=== PATIENT | male | born 1965 | race Caucasian/White ===

== ENCOUNTER 2019-07-07 11:53 | Emergency (ER) | payer SELFPAY ==
[2019-07-07 12:39] VITALS: BP 193/91; PULSE 59; RESP 16; TEMP 37.9; O2SAT 93; BMI 40.4
--- NOTE | 2019-07-07 13:28 | XRR_ITS ---
PROCEDURE INFORMATION: Exam: XR Chest, 1 View Exam date and time: 07/07/2019 1:39 PM Age: 54 years old Clinical indication: Cough and fever; Additional info: Cough, fever TECHNIQUE: Imaging protocol: XR of the chest Views: 1 view. COMPARISON: No relevant prior studies available. FINDINGS: Lungs: Unremarkable. No consolidation. Pleural space: Unremarkable. No pleural effusion. No pneumothorax. Heart/Mediastinum: Unremarkable. No cardiomegaly. Bones/joints: Unremarkable. XR/XR chest 1V portable [id number] IMPRESSION: No acute findings.
[2019-07-07 14:06] LABS: Hematocrit 44.6 % (42.0-52.0); Hemoglobin 14.5 g/dL (11.7-16.6); Mean Corpuscular HGB Conc 32.5 g/dL (30.0-36.0); Mean Corpuscular Hemoglobin 27.6 pg (28.0-34.0); Mean Platelet Volume 11.4 fL (7.4-10.4); Platelet Count 188 10^3/cmm (130-400); Red Blood Count 5.25 10^6/uL (4.1-5.3); Red Cell Distribution Width 13.4 % (12.1-15.1); White Blood Count 8.2 10^3/uL (4.0-10.0)
--- NOTE | 2019-07-07 14:08 | ED_ITS ---
HPI - Fever General: Chief Complaint: Fever Stated Complaint: FEVER COUGH ACHES Time Seen by Provider: 07/07/19 14:05 Source: patient and family Mode of arrival: ambulatory Limitations: no limitations History of Present Illness: HPI Narrative: Patient is a very nice 54-year-old male who presents to ED today believing he has the flu. Patient states he has had positive flu exposure from his grandson recently. He is complaining of body aches, fevers of up to 102, chills, and congestion. Symptoms initially began approximately 4 days ago. He is not having any abdominal pain, nausea, vomiting, diarrhea. He is still able to hold down food and liquids well. MD elicited complaint: fever and other (body aches, flu ) Onset (ago): day(s) Measured temperature: 102 F Context: sick contacts (grandson with flu) Exacerbating factors: at night Relieving factors: ibuprofen Associated symptoms: Reports chills, nasal congestion and sinus pain; Deny abdominal pain, back/flank pain, chest pain, diarrhea, dysuria, headache(s), nausea or vomiting Review of Systems Const: Reports: fever, chills and body aches; Denies: change in appetite, change in weight or fatigue Eyes: Denies: change in vision, blurry vision, photophobia, eye discomfort or eye discharge ENMT: Reports: nasal congestion and facial/sinus pain; Denies: throat pain, enlarged tonsils, painful swallowing, swelling of lips/tongue, oral sores/lesions, ear pain, ear discharge, nasal discharge or post nasal drip Card: Denies: chest pain, palpitations, irregular heart rhythm, edema, swelling of feet/ankles, lightheadedness, syncope or pre-syncope Resp: Denies: shortness of breath, productive cough, non-productive cough or chest congestion GI: Denies: abdominal pain, nausea, vomiting or diarrhea : Denies: flank pain, difficulty urinating, painful urination, urinary frequency, urinary urgency or urinary hesitancy Musc: Denies: neck pain or back pain Skin/Breast: Denies: rash Neuro: Denies: headache, numbness in extremities, weakness in extremities or changes in sensation All/Imm: Denies: facial swelling or seasonal allergies PFSH ED PFSH: Social History Smoking and tobacco status: never smoked Physical Exam Const: COMMON NORMALS: no apparent distress, oriented x3, no limitations and alert NUTRITIONAL APPEARANCE: obese HENMT: COMMON NORMALS: normocephalic, head/scalp atraumatic, EAC's normal, TM's normal bilaterally and external nose normal HEAD & SCALP: normocephalic and atraumatic FACE & SINUS: normal facial exam NOSE: external nose normal EXTERNAL AUDITORY CANAL: EAC's normal TYMPANIC MEMBRANE: TM's normal bilaterally MOUTH: oral and palatal mucosa normal THROAT: posterior oropharynx normal, tonsils normal and uvula midline Eye: COMMON NORMALS: PERRL, EOMs intact bilaterally, conjunctivae normal and no scleral icterus CONJUNCTIVA: Yes conjunctivae normal PUPIL: Yes PERRL Neck/C-Spine: COMMON NORMALS: full ROM, no lymphadenopathy, supple and no meningeal signs Chest: COMMONS NORMALS: inspection of chest normal Resp: COMMON NORMALS: normal respiratory effort and clear to auscultation bilaterally AUSCULTATION: clear to auscultation bilaterally Cardio: COMMON NORMALS: regular rate and regular rhythm RATE: regular rate RHYTHM: regular rhythm GI: COMMON NORMALS: normal to inspection, nondistended, normoactive bowel sounds, soft to palpation, non-tender, no hepatosplenomegaly and no masses PALPATION: Yes soft and Yes no hepatosplenomegaly : COMMON NORMALS: Yes no CVA tenderness BLADDER/KIDNEY EXAM: Yes no CVA tenderness Back/Pelvis: COMMON NORMALS: no CVA tenderness and thoracic and lumbar spine normal to inspection Extremity: COMMON NORMALS: normal to inspection Neuro: COMMON NORMALS: oriented x3 SENSORIUM/ORIENTATION: Yes alert MENINGEAL SIGNS: Yes no meningeal signs Skin: COMMON NORMALS: no rashes or lesions noted GENERAL SKIN EXAM: no rashes or lesions noted Course Vital Signs: Vital signs: Vital Signs Temperature 100.2 F H 07/07/19 12:39 Pulse Rate 59 L 07/07/19 12:39 Respiratory Rate 16 07/07/19 12:39 Blood Pressure 193/91 07/07/19 12:39 Pulse Oximetry 93 07/07/19 12:39 MDM - Fever Lab Data: Labs: Lab Results 07/07/19 07/07/19 07/07/19 Range/Units 13:45 13:49 14:21 WBC 8.2 (4.0-10.0) 10^3/ uL RBC 5.25 (4.1-5.3) 10^6/u L Hgb 14.5 (11.7-16.6) g/dL Hct 44.6 (42.0-52.0) % MCV 85.0 (80-94) fL MCH 27.6 L (28.0-34.0) pg MCHC 32.5 (30.0-36.0) g/dL RDW 13.4 (12.1-15.1) % Plt Count 188 (130-400) 10^3/c mm MPV 11.4 H (7.4-10.4) fL Total Counted 100 (0-100) Segmented Neutroph ils 73 % Lymphocytes (Manua l) 20 % Monocytes (Manual) 7.0 % Absolute Monocytes 0.6 (0.1-0.6) 10^3/c mm Platelet Estimate Normal (Normal) Sodium 137 (136-145) mmol/L Potassium 3.9 (3.5-5.1) mmol/L Chloride 96 L (98-107) mmol/L Carbon Dioxide 27 (22-29) mmol/L Anion Gap 17.9 (5-19) BUN 11 (6-20) mg/dL Creatinine 1.3 H (0.7-1.2) mg/dL GFR Calculation 57.1 L (90-130) mL/min Glucose 122 H (65-115) mg/dL Calcium 9.3 (8.5-10.5) mg/dL Total Bilirubin 0.5 (0.15-1.2) mg/dL AST 23 (0-40) U/L ALT 36 (0-41) U/L Alkaline Phosphata se 61 (40-130) IU/L Total Protein 7.8 (6.6-8.7) g/dL Albumin 4.5 (3.5-5.2) g/dL Globulin 3.3 (1.3-4.6) g/dL Influenza Type A A g Negative (Negative) POC Influenza B Ag Positive H (Negative) Imaging Data^: CXR: Radiologist's impression: [address] [address] XRay Report Signed Patient: [place] Unit #: [id number] : 1965 Age/Sex: 54 / M ADM Date: 07/07/19 Loc: ER Room/Bed: Attending Dr: Ordering Provider/Ordering MD: Leslie Snell MD Date of Service: 07/07/19 Procedure(s): XR chest 1V portable [id number] Accession Number(s): [id number] Report Number: [id number] PROCEDURE INFORMATION: Exam: XR Chest, 1 View Exam date and time: 07/07/2019 1:39 PM Age: 54 years old Clinical indication: Cough and fever; Additional info: Cough, fever TECHNIQUE: Imaging protocol: XR of the chest Views: 1 view. COMPARISON: No relevant prior studies available. FINDINGS: Lungs: Unremarkable. No consolidation. Pleural space: Unremarkable. No pleural effusion. No pneumothorax. Heart/Mediastinum: Unremarkable. No cardiomegaly. Bones/joints: Unremarkable. XR/XR chest 1V portable [id number] IMPRESSION: No acute findings. Dictated By: Bryanna Moss MD Signed By: Bryanna Moss MD Signed Date/Time: 07/07/191433 DD/ 143 Discharge Plan Discharge Patient Disposition: Home, Self-Care Clinical Impression: Influenza Condition: Stable Prescriptions: No Action Multiple Vitamins Tablet 1 tab PO DAILY RF: 0 metoprolol tartrate 100 mg tablet 100 mg PO BID RF: 0 aspirin 81 mg Tablet,Delayed Release (Dr/Ec) 81 mg PO DAILY RF: 0 levothyroxine 75 mcg tablet 75 mcg PO BID RF: 0 ibuprofen 200 mg Tablet 200 mg PO Q6H PRN (Reason: Pain) RF: 0 lisinopril-hydrochlorothiazide 20-25 mg tablet 1 tab PO DAILY RF: 0 zinc 50 mg Tablet 50 mg PO DAILY RF: 0 Coricidin HBP Cold and Flu 2-325 mg Tablet 1 tab PO Q6H PRN (Reason: UNKNOWN) RF: 0 elderberry fruit and flower 460-115 mg Capsule 1 cap PO DAILY RF: 0 Discharge Orders: Discharge Order (Routine); Ordered 07/07/19 Ordered By: Scarlet Lincoln Discharge Diet: Usual diet Discharge Activity: Increase activity as tolerated Patient Instructions: Influenza (ED) Coding Level of Care Code ED Brand Recorder for Chg Fwd Exam Comprehensive
[2019-07-07 14:30] LABS: Total Cells Counted 100 (0-100)
[2019-07-07 14:31] LABS: Absolute Segmented Neutrophil 5.9 10/cmm (1.6-7.1); Lymphocytes 20 %; Monocytes Absolute 0.6 10^3/cmm (0.1-0.6); Platelet Estimate Normal (Normal); Segmented Neutrophils 73 %
[2019-07-07 14:34] LABS: Alanine Aminotransferase 36 U/L (0-41); Albumin Level 4.5 g/dL (3.5-5.2); Alkaline Phosphatase 61 IU/L (40-130); Anion Gap 17.9 (5-19); Aspartate Amino Transferase 23 U/L (0-40); Blood Urea Nitrogen 11 mg/dL (6-20); Calcium 9.3 mg/dL (8.5-10.5); Carbon Dioxide 27 mmol/L (22-29); Chloride 96 mmol/L (98-107); Globulin 3.3 g/dL (1.3-4.6); Glomerular Filtration Rate 57.1 mL/min (90-130); Glucose 122 mg/dL (65-115); Potassium 3.9 mmol/L (3.5-5.1); Sodium 137 mmol/L (136-145); Total Bilirubin 0.5 mg/dL (0.15-1.2); Total Protein 7.8 g/dL (6.6-8.7)
[2019-07-07 14:54] LABS: Influenza A by IFA Negative (Negative)
[2019-07-07 14:55] LABS: Influenza B by IFA Positive (Negative)
[2019-07-07 15:11] VITALS: PULSE 55; RESP 16; O2SAT 96
== END 2019-07-07 15:12 | disposition home or self-care (01) ==
PROVIDERS: Emergency Medicine; Emergency Provider Physician Assistant
DX: J11.1 Influenza due to unidentified influenza virus with other respiratory manifestations (principal); E66.9 Obesity, unspecified; Z68.41 Body mass index [BMI] 40.0-44.9, adult
CPT/HCPCS: 36415; 71045; 80053; 85007; 85027; 87804; 99281; 99283

== ENCOUNTER 2022-07-04 00:33 | Emergency (ER) | payer MEDICAID, SELFPAY ==
--- NOTE | 2022-07-04 00:39 | XRR_ITS ---
PROCEDURE INFORMATION: Exam: XR Chest Exam date and time: 07/04/2022 1:40 AM Age: 57 years old Clinical indication: Patient HX: C/O palpitations; Additional info: Arrhythmia TECHNIQUE: Imaging protocol: Radiologic exam of the chest. Views: 1 view. COMPARISON: CR XR chest 1V portable [id number] 07/07/2019 1:37 PM FINDINGS: Lungs: Minimal bibasilar atelectasis.. No consolidation. Pleural spaces: Unremarkable. No pleural effusion. No pneumothorax. Heart/Mediastinum: Unremarkable. No cardiomegaly. Bones/joints: Unremarkable. XR/XR chest 1V portable [id number] IMPRESSION: No acute findings.
[2022-07-04 00:40] VITALS: BMI 40.1
--- NOTE | 2022-07-04 00:42 | ED_ITS ---
HPI - General Adult General: Chief complaint: Arrhythmia/Palpitations Stated complaint: irregular hr Time Seen by Provider: 07/04/22 00:39 History of Present Illness: 57-year-old male patient comes in today with irregular heart rate. Patient felt lightheaded at home. Patient has had a history of atrial fibs. Patient also has poorly controlled hypertension. Patient takes 100 mg of metoprolol twice a day. Patient also takes lisinopril 20 with 25 mg of hydrochlorothiazide daily. Patient denies any chest pain. Patient takes levothyroxine 75 mcg twice a day for some hypothyroidism. Patient takes that at home blood pressure runs 160-180 systolic. Patient reports taking medications routinely. Associated symptoms: Deny chest pain, dyspnea, nausea, rash or vomiting Review of Systems Const: Denies: fever(s) Eyes: Denies: change in vision ENMT: Denies: throat pain Card: Reports: irregular heart rhythm; Denies: chest pain Resp: Denies: dyspnea GI: Denies: nausea or vomiting : Denies: difficulty urinating Skin/Breast: Denies: rash PFSH ED PFSH: Social History Smoking and tobacco status: never smoked Physical Exam Const: COMMON NORMALS: alert HENMT: COMMON NORMALS: normocephalic HEAD & SCALP: normocephalic NOSE: Normal nares present MOUTH: Normal oral and palatal mucosa present Neck/C-Spine: COMMON NORMALS: full ROM Resp: COMMON NORMALS: normal respiratory effort and clear to auscultation bilaterally AUSCULTATION: clear to auscultation bilaterally Cardio: COMMON NORMALS: regular rate, S1 normal heart sound present and S2 normal heart sound present RATE: regular rate RHYTHM: abnormal rhythm HEART SOUNDS: S1 normal heart sound present and S2 normal heart sound present GI: AUSCULTATION: Yes normoactive bowel sounds PALPATION: No Tenderness to palpation present (GI) Extremity: COMMON NORMALS: normal to inspection and no pedal edema Neuro: SENSORIUM/ORIENTATION: Yes alert Skin: COMMON NORMALS: turgor normal GENERAL SKIN EXAM: turgor normal Course Vital Signs: Vital signs: Vital Signs Temperature 98.8 F 07/04/22 00:47 Pulse Rate 67 07/04/22 01:55 Respiratory Rate 16 07/04/22 01:55 Blood Pressure 164/112 07/04/22 01:55 Pulse Oximetry 94 07/04/22 01:55 Oxygen Delivery Me thod 07/04/22 00:47 MDM - General Adult Medical Decision Making 57-year-old male patient comes in today with some irregular heart rate and lightheadedness. Patient has a history of atrial fibs and uncontrolled hypertension along with hypothyroidism. Patient is obese. On exam heart rate is irregular in the lower 100s. No edema is noted in the extremity. Abdomen soft nontender. Lungs are decreased in the bases. Blood pressure is elevated at 221/144. EKG shows atrial fibrillation with RVR and possible myocardial infarct. Differential diagnosis includes ACS, uncontrolled hypertension, atrial fib with RVR. Patient was treated with 25 mg of hydralazine for elevated blood pressure. Patient was given 25 mg of diltiazem for A-fib with RVR. Patient had improvement of atrial fibrillation with good rate control into the 60s. Chest x-ray noted some possible patchy infiltrate in the right middle lobe, patient had complained of some increased cough and congestion. Troponin was in the normal range, BNP was in the normal range. I believe the patient has a lower respiratory infection that may be aggravating his atrial fibrillation. We will start patient on doxycycline 100 mg 2 times a day. Patient has medications at home for asthma. Which she will continue. Patient then will also continue his routine cardiac medications. Patient felt comfortable to go home blood pressure was brought under control to 160 systolic and pulse rate was brought under control into the 60s. Lab Data 07/04/22 00:58 07/04/22 00:58 Laboratory Results WBC 9.6 10^3/uL (4.0-10.0) 07/04/22 00:58 RBC 5.38 10^6/uL (4.1-5.3) H 07/04/22 00:58 Hgb 15.2 g/dL (11.7-16.6) 07/04/22 00:58 Hct 45.8 % (42.0-52.0) 07/04/22 00:58 MCV 85.1 fl (80-94) 07/04/22 00:58 MCH 28.3 pg (28.0-34.0) 07/04/22 00:58 MCHC 33.2 g/dL (30.0-36.0) 07/04/22 00:58 RDW 13.0 % (12.1-15.1) 07/04/22 00:58 Plt Count 228 10^3/cmm (130-400) 07/04/22 00:58 MPV 10.7 fL (7.4-10.4) H 07/04/22 00:58 Neut % (Auto) 38.2 % 07/04/22 00:58 Lymph % (Auto) 41.5 % 07/04/22 00:58 [place] % (Auto) 10.4 % 07/04/22 00:58 Eos % (Auto) 8.4 % 07/04/22 00:58 Baso % (Auto) 1.1 % 07/04/22 00:58 Neut # (Auto) 3.68 10^3/uL (1.8-7.7) 07/04/22 00:58 Lymph # (Auto) 4.0 10^3/uL (0.8-4.8) 07/04/22 00:58 [place] # (Auto) 1.0 10^3/uL (0.2-0.9) H 07/04/22 00:58 Eos # (Auto) 0.8 10^3/uL (0.0-0.8) 07/04/22 00:58 Baso # (Auto) 0.1 10^3/uL (0.0-0.1) 07/04/22 00:58 Nucleated RBC % (auto) 0 % 07/04/22 00:58 Nucleated RBCs # 0.0 /100WBC 07/04/22 00:58 Sodium 137 mmol/L (136-145) 07/04/22 00:58 Potassium 3.5 mmol/L (3.5-5.1) 07/04/22 00:58 Chloride 97 mmol/L (98-107) L 07/04/22 00:58 Carbon Dioxide 27 mmol/L (22-29) 07/04/22 00:58 Anion Gap 16.5 (5-19) 07/04/22 00:58 BUN 15 mg/dL (6-20) 07/04/22 00:58 Creatinine 1.0 mg/dL (0.7-1.2) 07/04/22 00:58 GFR Calculation 76.5 mL/min (90-130) L 07/04/22 00:58 Glucose 114 mg/dL (65-115) 07/04/22 00:58 Calculated Osmolality 286 mOsm/kg (285-295) 07/04/22 00:58 Calcium 9.5 mg/dL (8.5-10.5) 07/04/22 00:58 Total Bilirubin 0.4 mg/dL (0.15-1.2) 07/04/22 00:58 AST 17 U/L (0-40) 07/04/22 00:58 ALT 21 U/L (0-41) 07/04/22 00:58 Alkaline Phosphatase 63 U/L (40-130) 07/04/22 00:58 Troponin T Baseline 13 ng/L (0-15) 07/04/22 00:58 NT-Pro-B Natriuret Pep 87 pg/mL (0-125) 07/04/22 00:58 Total Protein 7.2 g/dL (6.6-8.7) 07/04/22 00:58 Albumin 4.2 g/dL (3.5-5.2) 07/04/22 00:58 Globulin 3.0 g/dL (1.3-4.6) 07/04/22 00:58 TSH 9.55 uIU/mL (0.27-4.20) H 07/04/22 00:58 Discharge Plan Discharge Patient Disposition: Home Clinical Impression: Uncontrolled hypertension, Acute lower respiratory infection Atrial fibrillation Qualifiers: Atrial fibrillation type: unspecified Qualified Code(s): I48.91 - Unspecified atrial fibrillation Condition: Stable Prescriptions: New doxycycline monohydrate 100 mg capsule 100 mg PO BID 7 Days Qty: 14 0RF No Action Multiple Vitamins Tablet 1 tab PO DAILY metoprolol tartrate 100 mg tablet 100 mg PO BID aspirin 81 mg Tablet,Delayed Release (Dr/Ec) 81 mg PO DAILY levothyroxine 75 mcg tablet 75 mcg PO BID ibuprofen 200 mg Tablet 200 mg PO Q6H PRN (Reason: Pain) lisinopril-hydrochlorothiazide 20-25 mg tablet 1 tab PO DAILY zinc 50 mg Tablet 50 mg PO DAILY Coricidin HBP Cold and Flu 2-325 mg Tablet 1 tab PO Q6H PRN (Reason: UNKNOWN) elderberry fruit and flower 460-115 mg Capsule 1 cap PO DAILY Discharge Orders: Discharge ED (Routine); Ordered 07/04/22 Ordered By: Gurmeet Infante Discharge Diet: Usual diet Discharge Activity: Increase activity as tolerated Patient Instructions: Pneumonia (ED) Activity Restrictions/Additional Instructions: Take antibiotic as directed. Take medications routinely as directed. Use clonidine as needed for blood pressure greater then 180 systolic. Use albuterol inhaler as needed for cough and congestion. Drink plenty of fluids. Follow-up with primary care in 2 to 3 days for recheck. Return to ED for worsening symptoms or new concerns. Coding Level of Care Code ED Housing And Residence Life Director for 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
--- NOTE | 2022-07-04 00:42 | ECG_ITS ---
[facility] Test Date: 2022-07-04 Pat Name: [place] Department: Room: Gender: Male Quality Ass[employer] Qa Lab Technician: : 1965 Requested By: Gurmeet Sharp Order Number: [id number] Charity MD: Sheela Reddy M.D. Measurements Intervals [place] Rate: 106 P: 0 MD: 0 QRS: -15 QRSD: 104 T: 107 QT: 336 QTc: 447 Interpretive Statements ATRIAL FIBRILLATION WITH RAPID VENTRICULAR RESPONSE SEPTAL MYOCARDIAL INFARCTION , PROBABLY RECENT [40+ ms Q WAVE IN V1/V2] ACUTE MD No previous ECG available for comparison Electronically Signed On 07-04-2022 22:19:14 DIVISION SERGEANT by Sheela Reddy M.D. [id number]
[2022-07-04 00:47] VITALS: BP 221/144; PULSE 100; RESP 18; TEMP 37.1; O2SAT 96
[2022-07-04 01:03] LABS: Basophils # 0.1 10^3/uL (0.0-0.1); Basophils % 1.1 %; Eosinophils # 0.8 10^3/uL (0.0-0.8); Eosinophils % 8.4 %; Hematocrit 45.8 % (42.0-52.0); Hemoglobin 15.2 g/dL (11.7-16.6); Lymphocytes % 41.5 %; Mean Corpuscular HGB Conc 33.2 g/dL (30.0-36.0); Mean Corpuscular Hemoglobin 28.3 pg (28.0-34.0); Mean Corpuscular Volume 85.1 fl (80-94); Mean Platelet Volume 10.7 fL (7.4-10.4); Monocytes % 10.4 %; Neutrophils # 3.68 10^3/uL (1.8-7.7); Neutrophils % 38.2 %; Nucleated Red Blood Cells % 0 %; Platelet Count 228 10^3/cmm (130-400); Red Blood Count 5.38 10^6/uL (4.1-5.3); White Blood Count 9.6 10^3/uL (4.0-10.0)
[2022-07-04 01:07] VITALS: BP 181/125; PULSE 98; RESP 20; O2SAT 91
[2022-07-04] MEDS: hyDRALAzine 25 mg Tablet PO (01:23)
[2022-07-04] MEDS: dilTIAZem 5 mg/mL SDV 5 mL 25 MG IVP (01:24)
[2022-07-04 01:29] LABS: Troponin(5th) Baseline 13 ng/L (0-15)
[2022-07-04 01:39] VITALS: BP 177/95; PULSE 64; RESP 18; O2SAT 95
[2022-07-04 01:39] LABS: Alanine Aminotransferase 21 U/L (0-41); Albumin Level 4.2 g/dL (3.5-5.2); Alkaline Phosphatase 63 U/L (40-130); Anion Gap 16.5 (5-19); Aspartate Amino Transferase 17 U/L (0-40); Blood Urea Nitrogen 15 mg/dL (6-20); Calcium 9.5 mg/dL (8.5-10.5); Carbon Dioxide 27 mmol/L (22-29); Chloride 97 mmol/L (98-107); Glomerular Filtration Rate 76.5 mL/min (90-130); Glucose 114 mg/dL (65-115); NT Pro B Type Natriuretic Pept 87 pg/mL (0-125); Osmolality Calculated 286 mOsm/kg (285-295); Potassium 3.5 mmol/L (3.5-5.1); Sodium 137 mmol/L (136-145); Thyroid Stimulating Hormone 9.55 uIU/mL (0.27-4.20); Total Bilirubin 0.4 mg/dL (0.15-1.2); Total Protein 7.2 g/dL (6.6-8.7)
[2022-07-04 01:55] VITALS: BP 164/112; PULSE 67; RESP 16; O2SAT 94
[2022-07-04] MEDS: doxycycline 100 mg Tablet PO (02:09)
== END 2022-07-04 02:10 | disposition home or self-care (01) ==
PROVIDERS: Emergency Provider Nurse Practitioner Family
DX: I48.91 Unspecified atrial fibrillation (principal); I10 Essential (primary) hypertension; J22 Unspecified acute lower respiratory infection; Z79.82 Long term (current) use of aspirin
CPT/HCPCS: 71045; 80053; 83880; 84443; 84484; 85025; 93005; 96374; 99285; J3490

== ENCOUNTER 2023-08-05 06:24 | Emergency (ER) | payer MEDICAID, SELFPAY ==
[2023-08-05 06:27] VITALS: BP 190/98; PULSE 123; RESP 18; TEMP 36.8; O2SAT 96; BMI 42.9
--- NOTE | 2023-08-05 06:28 | ECG_ITS ---
[facility] Test Date: 2023-08-05 Pat Name: [place] Department: Room: Gender: Male Adult Education Manager: : 1965 Requested By: Lopez Jones Order Number: [id number] Charity MD: Sheela Reddy M.D. Measurements Intervals [place] Rate: 134 P: 0 MD: 0 QRS: 3 QRSD: 102 T: 58 QT: 311 QTc: 466 Interpretive Statements ATRIAL FIBRILLATION WITH RAPID VENTRICULAR RESPONSE ST DEPRESSION, CONSIDER SUBENDOCARDIAL INJURY [0.1+ mV ST DEPRESSION] Compared to ECG 07/04/2022 00:42:08 ST (T wave) deviation now present Myocardial infarct finding no longer present Electronically Signed On 08-06-2023 23:40:04 CDT by Sheela Reddy M.D. [id number]
--- NOTE | 2023-08-05 06:30 | XR_ITS ---
WS: [id number] Exam: XR chest 1V portable [id number] Date/Time of Exam: 08/05/2023 6:53 AM Reason For Exam: dyspnea/cough Comparison 07/07/2019. The lungs are fully expanded. No acute infiltrates are noted. Calcified nodule along the LEFT heart b order probably a calcified granuloma. No pleural effusions. Normal cardiomediastinal silhouette. Spon dylosis of the dorsal spine. IMPRESSION: 1. 1 cm nodular density along the LEFT heart border appearing to be calcified. 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 Difficult to identify on prior studies. 2. No acute process noted. Recommendations: A nonemergent detailed PA and lateral chest x-ray is recommended in 1 to 2 weeks.
[2023-08-05] MEDS: dilTIAZem 5 mg/mL SDV 5 mL 20 MG IVP (06:41)
--- NOTE | 2023-08-05 06:41 | ED_ITS ---
HPI - Arrhythmia/Palpitations 2 General: Chief Complaint: Arrhythmia/Palpitations Stated Complaint: chest pain Time Seen by Provider: 08/05/23 06:28 Source: patient Mode of arrival: ambulatory History of Present Illness: 58-year-old male presents emergency room with rapid heart rate. He woke up approximately an hour ago with a rapid heart rate. He has a known history of atrial fibrillation and is not on any anticoagulation he is on verapamil and metoprolol for rate control. No recent medication changes or missed doses. He has not taken his morning dose yet. When he awoke he had elevated blood pressure so he took a clonidine when she is also on regularly. He has not had any improvement of his symptoms. No chest discomfort no nausea vomiting or diarrhea. He has no known history of coronary artery disease MD complaint: rapid heart beat and heart racing Onset (ago): hour(s) Duration: constant Arrhythmia history: atrial fibrillation Associated symptoms: Deny anxiety, cough, diaphoresis, muscle cramps, nausea, paresthesias, pre-syncope, sense of impending doom, short of breath, syncope or vomiting Review of Systems 2 Const: Denies: fever(s), chills or diaphoresis Card: Denies: chest pain, syncope or pre-syncope Resp: Denies: dyspnea GI: Denies: abdominal pain, nausea or vomiting : Denies: dysuria, urinary frequency or urinary urgency Musc: Denies: neck pain, back pain or muscle cramps Skin/Breast: Denies: rash Psych: Denies: anxiety PFSH ED 2 PFSH: Medical History (Updated 08/05/23 @ 13:03 by Lopez Spaulding DO) Hypothyroidism Asthma GERD (gastroesophageal reflux disease) Hypertension Atrial fibrillation Sleep apnea Family History Other Atrial fibrillation Social History (Updated 08/05/23 @ 12:58 by Roland Rodríguez MD) Smoking and tobacco/nicotine status: current every day tobacco/nicotine user smokeless tobacco Smokeless tobacco user: snuff Alcohol intake: never Substance/Drug Use: never Physical Exam 2 Const: GENERAL APPEARANCE: cooperative and comfortable O RIENTATION/CONSCIOUSNESS: Yes awake, Yes oriented to person, Yes oriented to place and Yes oriented to time HENMT: COMMON NORMALS: normocephalic, atraumatic and hearing grossly normal bilaterally HEAD & SCALP: normocephalic and atraumatic Resp: COMMON NORMALS: normal respiratory effort, No retractions, No use of accessory muscles and clear to auscultation bilaterally AUSCULTATION: clear to auscultation bilaterally Cardio: COMMON NORMALS: No murmurs present (Cardio) RATE: tachycardic R HYTHM: abnormal rhythm irregularly irregular GI: COMMON NORMALS: Soft to palpation and No hepatosplenomegaly present A USCULTATION: Yes normoactive bowel sounds PALPATION: Yes Soft to palpation, No Tenderness to palpation present (GI), No Guarding due to palpation present (GI) and Yes No hepatosplenomegaly present Extremity: COMMON NORMALS: normal to inspection, capillary refill normal, no clubbing, cyanosis or edema, no calf tenderness and no pedal edema Neuro: SENSORIUM/ORIENTATION: Yes oriented to person, Yes oriented to place and Yes oriented to time Skin: COMMON NORMALS: no rashes or lesions noted GENERAL SKIN EXAM: no rashes or lesions noted Course 2 Vital Signs: Vital signs: Vital Signs Temperature 98.2 F 08/05/23 06:27 Pulse Rate 63 08/05/23 09:09 Respiratory Rate 18 08/05/23 06:27 Blood Pressure 136/85 08/05/23 08:30 Pulse Oximetry 98 08/05/23 09:09 Oxygen Delivery Me thod Room Air 08/05/23 08:30 MDM - Arrhythmia/Palpitations Medical Decision Making Initial EKG shows A-fib with a rate of [address] depression he has no pain at this time. Suspect that it was rate related changes that is resolved on his rate improved and he was feeling much better. His initial troponin was normal did not reported chest pain he was discharged home the second troponin had been drawn and came back with a delta of +16 patient was contacted to return to the emergency room. Upon return to the emergency room the patient is completely asymptomatic he is now in a sinus bradycardia blood pressure is still slightly elevated he has not had any chest pain or discomfort. Reviewed the case with Dr. Reddy he recommends observation for stress testing reviewed findings with patient discussed with hospitalist Medical Records I reviewed the patient's medical records. Lab Data I reviewed the patient's lab results. 08/05/23 06:40 08/05/23 06:40 Laboratory Results WBC 8.91 10^3/uL (3.29-11.43) 08/05/23 06:40 RBC 5.75 10^6/uL (3.85-5.65) H 08/05/23 06:40 Hgb 16.70 g/dL (11.27-16.99) 08/05/23 06:40 Hct 49.1 % (37-53) 08/05/23 06:40 MCV 85.4 fl (82-101) 08/05/23 06:40 MCH 29.0 pg (27-33) 08/05/23 06:40 MCHC 34.0 g/dL (30-55) 08/05/23 06:40 RDW 13.4 % (12.1-15.1) 08/05/23 06:40 Plt Count 207 10^3/cmm (157-399) 08/05/23 06:40 MPV 10.7 fL (7.4-10.4) H 08/05/23 06:40 Neut % (Auto) 47.8 % 08/05/23 06:40 Lymph % (Auto) 39.8 % 08/05/23 06:40 George % (Auto) 8.6 % 08/05/23 06:40 Eos % (Auto) 2.2 % 08/05/23 06:40 Baso % (Auto) 0.9 % 08/05/23 06:40 Neut # (Auto) 4.25 10^3/uL (1.8-7.7) 08/05/23 06:40 Lymph # (Auto) 3.6 10^3/uL (0.8-4.8) 08/05/23 06:40 George # (Auto) 0.8 10^3/uL (0.2-0.9) 08/05/23 06:40 Eos # (Auto) 0.2 10^3/uL (0.0-0.8) 08/05/23 06:40 Baso # (Auto) 0.1 10^3/uL (0.0-0.1) 08/05/23 06:40 Nucleated RBC % (auto) 0 % 08/05/23 06:40 Nucleated RBCs # 0.0 /100WBC 08/05/23 06:40 Sodium 139 mmol/L (136-145) 08/05/23 06:40 Potassium 4.0 mmol/L (3.5-5.1) 08/05/23 06:40 Chloride 97 mmol/L (98-107) L 08/05/23 06:40 Carbon Dioxide 28 mmol/L (22-29) 08/05/23 06:40 Anion Gap 18.0 (5-19) 08/05/23 06:40 BUN 15 mg/dL (8-23) 08/05/23 06:40 Creatinine 0.9 mg/dL (0.7-1.2) 08/05/23 06:40 GFR Calculation 86.1 mL/min (90-130) L 08/05/23 06:40 Glucose 138 mg/dL (65-115) H 08/05/23 06:40 Calculated Osmolality 291 mOsm/kg (285-295) 08/05/23 06:40 Calcium 9.8 mg/dL (8.5-10.5) 08/05/23 06:40 Magnesium 2.0 mg/dL (1.7-2.3) 08/05/23 06:40 Total Bilirubin 0.7 mg/dL (0.15-1.2) 08/05/23 06:40 AST 17 U/L (0-40) 08/05/23 06:40 ALT 21 U/L (0-41) 08/05/23 06:40 Alkaline Phosphatase 59 U/L (40-130) 08/05/23 06:40 Troponin T Baseline 14 ng/L (0-15) 08/05/23 06:40 Troponin T 120 Minute 30.89 ng/L (0-15) H 08/05/23 09:04 Delta Troponin T 16.89 ABS# (0-10) H* 08/05/23 09:04 Total Protein 7.8 g/dL (6.6-8.7) 08/05/23 06:40 Albumin 4.9 g/dL (3.5-5.2) 08/05/23 06:40 Globulin 2.9 g/dL (1.3-4.6) 08/05/23 06:40 TSH 5.45 uIU/mL (0.27-4.20) H 08/05/23 06:40 All radiology interpretation(s) finalized by discharge Discharge Plan Discharge Patient Disposition: Admitted As Inpatient Clinical Impression: Atrial fibrillation, Elevated troponin I level, Sleep apnea Condition: Stable Prescriptions: No Action multivitamin [Multiple Vitamins] Tablet 1 tab PO DAILY metoprolol tartrate 100 mg tablet 100 mg PO BID aspirin 81 mg Tablet,Delayed Release (Dr/Ec) 81 mg PO QPM ibuprofen 200 mg Tablet 200 mg PO Q6H PRN (Reason: Pain) lisinopril-hydrochlorothiazide 20-25 mg tablet 1 tab PO QAM Coricidin HBP Cold and Flu 2-325 mg Tablet 1 tab PO Q6H PRN (Reason: Congestion) clonidine HCl 0.1 mg Tablet 0.1 mg PO PRN PRN (Reason: HIGH BLOOD PRESSURE) verapamil 40 mg tablet 40 mg PO Q12H levothyroxine 88 mcg tablet 88 mcg PO QAM omeprazole 20 mg capsule,delayed release(DR/EC) 20 mg PO DAILY Discharge Diet: Usual diet Discharge Activity: Increase activity as tolerated Patient Instructions: Opioid Safety, Pain Management Activity Restrictions/Additional Instructions: Thank you for choosing [facility] for your healthcare needs today. Please realize this is an emergency room and that we are providing you with a medical screening exam and this may not be complete and all inclusive of all the testing and or work up that you may need to determine your ailment or severity of your illness. It is very important that you follow up as instructed or that you return to the Emergency Department should you have concerns or if your condition changes or worsens in any way. You are seen today for an episode of atrial fibrillation. You responded well to the medications given. 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
[2023-08-05] MEDS: metoprolol tartrate 50 mg Tablet 100 MG PO (06:46)
[2023-08-05] MEDS: dilTIAZem 100 MG in sodium chloride 0.9% (add-van) 100 ML IV (06:48)
[2023-08-05 06:54] LABS: Basophils # 0.1 10^3/uL (0.0-0.1); Basophils % 0.9 %; Eosinophils # 0.2 10^3/uL (0.0-0.8); Eosinophils % 2.2 %; Hematocrit 49.1 % (37-53); Lymphocytes # 3.6 10^3/uL (0.8-4.8); Lymphocytes % 39.8 %; Mean Corpuscular Volume 85.4 fl (82-101); Mean Platelet Volume 10.7 fL (7.4-10.4); Monocytes # 0.8 10^3/uL (0.2-0.9); Monocytes % 8.6 %; Neutrophils # 4.25 10^3/uL (1.8-7.7); Neutrophils % 47.8 %; Nucleated Red Blood Cells % 0 %; Platelet Count 207 10^3/cmm (157-399); Red Blood Count 5.75 10^6/uL (3.85-5.65); Red Cell Distribution Width 13.4 % (12.1-15.1); White Blood Count 8.91 10^3/uL (3.29-11.43)
[2023-08-05 06:55] VITALS: BP 166/105; PULSE 77; O2SAT 94
[2023-08-05 07:07] LABS: Alanine Aminotransferase 21 U/L (0-41); Albumin Level 4.9 g/dL (3.5-5.2); Alkaline Phosphatase 59 U/L (40-130); Aspartate Amino Transferase 17 U/L (0-40); Blood Urea Nitrogen 15 mg/dL (8-23); Calcium 9.8 mg/dL (8.5-10.5); Carbon Dioxide 28 mmol/L (22-29); Chloride 97 mmol/L (98-107); Creatinine Clr Calc Pharmacy 124.7684; Globulin 2.9 g/dL (1.3-4.6); Glomerular Filtration Rate 86.1 mL/min (90-130); Glucose 138 mg/dL (65-115); Osmolality Calculated 291 mOsm/kg (285-295); Sodium 139 mmol/L (136-145); Total Bilirubin 0.7 mg/dL (0.15-1.2); Total Protein 7.8 g/dL (6.6-8.7)
[2023-08-05 07:10] LABS: Troponin(5th) Baseline 14 ng/L (0-15)
[2023-08-05 07:42] VITALS: BP 123/74; PULSE 83
[2023-08-05 08:20] VITALS: BP 136/65; PULSE 65
[2023-08-05 08:30] VITALS: BP 136/85; PULSE 66; O2SAT 93
[2023-08-05 09:09] VITALS: PULSE 63; O2SAT 98
[2023-08-05 09:30] LABS: Troponin 5 2HR 30.89 ng/L (0-15)
[2023-08-05 09:35] LABS: Troponin 5 2HR Delta 16.89 ABS# (0-10)
--- NOTE | 2023-08-05 10:39 | PC.NURSE ---
THIS NURSE CALLED PT TO COME BACK TO BE EVALUATED DUE TO ELEVATED 2 HR TROP
[2023-08-05 11:59] LABS: Thyroid Stimulating Hormone 5.45 uIU/mL (0.27-4.20)
--- NOTE | 2023-08-05 12:18 | P.HP_ITS ---
Providers/Chief Complaint 2 Admitting Physician: Roland Rodríguez MD Chief Complaint: chest pain History of Present Illness [place] is a 58 year old male who presented to the emergency department originally this morning after awakening and having a fast heart rate. He reports he has history of recurrent atrial fibrillation every once in a while goes into a fast rhythm. He is on verapamil as well as metoprolol to try to prevent this. He reports he takes aspirin as his anticoagulation. He indicates he has had this problem since his teenage years. He denies any chest discomfort preceding the event, or exertional discomfort. He reports he has untreated sleep apnea and is trying to get a sleep study done as he believes this may be contributing. He reports he occasionally wakes up in the morning short of breath, which he attributes secondary to sleep apnea. No recent fevers. With this episode of A-fib he felt some discomfort in his neck, which he reports was posterior. No history of coronary disease. Denies significant caffeine intake. He was originally released from the emergency department, after his heart rate came under control with initiation of his home medications and Cardizem. However, 2-hour troponin was noted to be elevated so he was brought back for admission. Review of Systems 2 General: Reports: 10 or more systems reviewed and unremarkable except in HPI and below Card: Reports: palpitations; Denies: chest pain Resp: Denies: dyspnea GI: Denies: abdominal pain, nausea, vomiting, hematochezia or melena Medications/Allergies Home Medications Medication Instructions Recorded Confirmed Last Taken Type aspirin 81 mg tablet,delayed 81 mg PO QPM 07/07/19 08/05/23 08/04/23 History release chlorpheniramine-acetaminophen 2 1 tab PO Q6H PRN Congestion 07/07/19 08/05/23 07/06/19 History mg-325 mg tablet (Coricidin HBP Cold and Flu) ibuprofen 200 mg tablet 200 mg PO Q6H PRN Pain 07/07/19 08/05/23 07/06/19 History lisinopril 20 1 tab PO QAM 07/07/19 08/05/23 08/04/23 History mg-hydrochlorothiazide 25 mg tablet metoprolol tartrate 100 mg tablet 100 mg PO BID 07/07/19 08/05/23 08/04/23 History multivitamin (Multiple Vitamins 1 tab PO DAILY 02/08/05/23 08/04/23 History tablet) clonidine HCl 0.1 mg tablet 0.1 mg PO PRN PRN HIGH BLOOD 08/05/23 08/05/23 08/05/23 History PRESSURE levothyroxine 88 mcg tablet 88 mcg PO QAM 08/05/23 08/05/23 08/04/23 History omeprazole 20 mg capsule,delayed 20 mg PO DAILY 08/05/23 08/05/23 08/04/23 History release verapamil 40 mg tablet 40 mg PO Q12H 08/05/23 08/05/23 08/04/23 History Allergies Allergy/AdvReac Type Severity Reaction Status Date / Time acetaminophen [From Tylenol] Allergy Unknown Verified 07/07/19 12:44 PFSH Acute 2 PFSH: Medical History (Updated 08/05/23 @ 13:11 by Roland Rodríguez MD) Hypothyroidism Asthma GERD (gastroesophageal reflux disease) Hypertension Atrial fibrillation Sleep apnea Family History Other Atrial fibrillation Social History Smoking and tobacco/nicotine status: current every day tobacco/nicotine user smokeless tobacco Smokeless tobacco user: snuff Alcohol intake: never Substance/Drug Use: never Vitals/I&O/Wt Last Vital Signs Temp 98.2 F 08/05/23 06:27 Pulse 63 08/05/23 09:09 Resp 18 08/05/23 06:27 BP 136/85 08/05/23 08:30 Pulse Ox 98 08/05/23 09:09 O2 Del Method Room Air 08/05/23 08:30 08/04/23 08/05/23 08/05/23 22:59 06:59 14:59 Intake Total 8.417 / 8.417 Balance 8.417 / 8.417 Weight last 48 hrs Weight 139.706 kg Physical Exam 2 Narrative: General exam is white male, conversant, in no distress, with a current heart rate of 55 sinus rhythm on telemetry HEENT: Atraumatic normocephalic. Oropharynx clear. Neck is supple no lymphadenopathy thyromegaly Cardiovascular bradycardic, no murmur Lungs clear. No wheezing or crackles Abdomen is soft obese nontender with positive bowel sounds. No obvious organomegaly exam is deferred Extremities no cyanosis, edema, cap refill brisk Skin no rash Neuro no obvious focal deficits. Data 08/05/23 06:40 08/05/23 06:40 Other Labs: LFTs are normal Troponin is 14 at baseline, 31 and 2-hour, 6-hour not yet done TSH 5.45 Magnesium level normal Chest x-ray no infiltrate per my read. On official read there is a 1 cm nodular density left heart border likely granuloma, formal PA and lateral x-ray recommended EKG demonstrates initially A-fib with RVR. Rate around 130. Left axis deviation. ST depression in V4 through 6 as well as inferiorly and some laterally. Repeat EKG demonstrates sinus bradycardia, left axis deviation, no significant ST or T wave changes. A&P Assessment and plan (1) Atrial fibrillation: Patient presents with atrial fibrillation with rapid ventricular rate earlier this morning. He converted with Cardizem and restarting his home meds. He was to continue aspirin for his anticoagulation currently. Will revisit this with him at discharge. Continue his home medications of verapamil and metoprolol Check echocardiogram Telemetry Observation (2) Elevated troponin I level: Troponin level is elevated and he has some symptoms of neck discomfort during the episode of A-fib which could be anginal equivalent, unmasking some coronary disease Trend troponins Echo as above Nuclear stress test tomorrow (3) Sleep apnea: He is try to get a sleep apnea test arranged. He has been having some difficulty. Will check with discharge planning regarding this. Overnight oximetry (4) Hypertension: Continue home meds Plan Multiple other medical problems as outlined in past medical history Full code currently Lovenox for DVT prophylaxis Attestations 2 Medical Necessity Statement*: Will need less than 2 midnight stay for evaluation treatment of atrial fibrillation with elevated troponin Diagnoses Atrial fibrillation I48.91 Elevated troponin I level R79.89 Sleep apnea G47.30 Hypertension I10 Time Spent (min) 53
[2023-08-05 13:43] LABS: Troponin 5 6HR 35.38 ng/L (0-15)
[2023-08-05 13:49] LABS: Troponin 5 6HR Delta 21.38 ng/L (0-12)
== END 2023-08-05 12:10 | disposition admitted as inpatient to this hospital (09) ==
PROVIDERS: Internal Medicine; Emergency Provider Family Medicine
DX: I48.91 Unspecified atrial fibrillation (principal); R79.89 Other specified abnormal findings of blood chemistry; G47.30 Sleep apnea, unspecified; Z79.82 Long term (current) use of aspirin; I10 Essential (primary) hypertension; F17.220 Nicotine dependence, chewing tobacco, uncomplicated
CPT/HCPCS: 36415; 71045; 80053; 83735; 84443; 84484; 85025; 93005; 96365; 96366; 96375; 99285; J3490

== ENCOUNTER 2023-08-05 11:40 | Observation (INO) | payer MEDICAID, SELFPAY ==
[2023-08-05] VITALS (72 sets, daily range): BP systolic 137–196; BP diastolic 79–106; PULSE 51–64; RESP 4–32; TEMP 36.6–36.9; O2SAT 93–98; BMI 42.9
--- NOTE | 2023-08-05 11:56 | PC.PHAR ---
PT DISCHARGED FROM ROOM 6 PREVIOUSLY THIS MORNING. MED REC COMPLETED AT THAT TIME. RE ADMISSION TO ROOM 3 SHORTLY AFTER DISCHARGE. MED REC BASICALLY COPIED AND PASTED. 08/05/23
--- NOTE | 2023-08-05 12:59 | W.ED.ARRPALP ---
HPI - Arrhythmia/Palpitations General: Chief Complaint: Arrhythmia/Palpitations Stated Complaint: abnormal labs Source: patient Mode of arrival: ambulatory History of Present Illness: 58-year-old male was seen earlier this morning the [facility] with RVR. He had some what appeared to be rate related changes they resolved he never had any chest pain but his cardiac enzyme came back as positive with a delta of+ 16. Patient was asked to return to the emergency room. He still denies any current chest discomfort. PFS ED PFSH: Medical History (Updated 08/05/23 @ 13:01 by Lopez Spaulding DO) Hypothyroidism Asthma GERD (gastroesophageal reflux disease) Hypertension Atrial fibrillation Sleep apnea Family History Other Atrial fibrillation Social History (Updated 08/05/23 @ 12:58 by Roland Rodríguez MD) Smoking and tobacco/nicotine status: current every day tobacco/nicotine user smokeless tobacco Smokeless tobacco user: snuff Alcohol intake: never Substance/Drug Use: never Course Vital Signs: Vital signs: Vital Signs Pulse Rate 53 L 08/05/23 12:50 Respiratory Rate 21 H 08/05/23 12:50 Blood Pressure 137/83 08/05/23 12:50 Pulse Oximetry 95 08/05/23 12:23 Oxygen Delivery Me thod Room Air 08/05/23 12:23 MDM - Arrhythmia/Palpitations Medical Decision Making Reviewed findings with the patient initial EKG showed some ST depression in was thought to be rate related it resolved when the rate was controlled. On return here he has a sinus bradycardia with no abnormalities. His second hour troponin was elevated with a delta of +16. I discussed Dr. Reddy he recommends observation and stress test and cardiology consultation if positive discussed Dr. Eduardo orders written. Patient reports he had a similar episode in April but he was not seen at that time we had a breakthrough episode of rapid heart rate. He states both today's episode and the previous 1 seem to have been precipitated by elevated blood pressure. He also strongly suspect she has sleep apnea and is in the process of trying to get that evaluated. Suspect that this elevated troponin may be related to his episode of atrial fibrillation today. Medical Records I reviewed the patient's medical records. Lab Data I reviewed the patient's lab results. No radiology studies performed this visit Discharge Plan Discharge Patient Disposition: Admitted As Inpatient Clinical Impression: Atrial fibrillation, Sleep apnea, Elevated troponin I level Condition: Stable Prescriptions: No Action multivitamin [Multiple Vitamins] Tablet 1 tab PO DAILY metoprolol tartrate 100 mg tablet 100 mg PO BID aspirin 81 mg Tablet,Delayed Release (Dr/Ec) 81 mg PO QPM ibuprofen 200 mg Tablet 200 mg PO Q6H PRN (Reason: Pain) lisinopril-hydrochlorothiazide 20-25 mg tablet 1 tab PO QAM Coricidin HBP Cold and Flu 2-325 mg Tablet 1 tab PO Q6H PRN (Reason: Congestion) clonidine HCl 0.1 mg Tablet 0.1 mg PO PRN PRN (Reason: HIGH BLOOD PRESSURE) verapamil 40 mg tablet 40 mg PO Q12H levothyroxine 88 mcg tablet 88 mcg PO QAM omeprazole 20 mg capsule,delayed release(DR/EC) 20 mg PO DAILY Coding Level of Care Code ED [employer] 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
[2023-08-05] MEDS: aspirin 81 mg Chew Tablet 324 MG PO (15:07)
--- NOTE | 2023-08-05 15:19 | USCV_ITS ---
[place] Age: 58 Gender: M : 1965 Exam Date: 08/05/2023 15:36 Ordering Phys: Lopez Spaulding DO Technologist: Exam Location: [facility] [place] Indication: BP: 181 / 94 HR: 42 Rhythm: Sinus Technical Quality: MEASUREMENTS (Male / Female) Normal Values 2D ECHO LV Diastolic Diameter PLAX 5.0 cm 4.2 - 5.9 / 3.9 - 5.3 cm IVS Diastolic Thickness 1.5 cm 0.6 - 1.0 / 0.6 - 0.9 cm IVS Systolic Thickness 2.0 cm LVPW Diastolic Thickness 1.1 cm 0.6 - 1.0 / 0.6 - 0.9 cm LVPW Systolic Thickness 2.1 cm LVOT Diameter 2.0 cm LV Ejection Fraction 2D Teich 55.0 % LV Ejection Fraction MOD 2C 68.9 % LV Ejection Fraction 2C AL 69.3 % LA Diameter 4.4 cm RA Systolic Volume 4C AL 70.3 ml RA Systolic Volume 4C MOD 67.6 ml M-MODE LA Ao Ratio MM 1.1 AV Cusp Separation MM 2.5 cm DOPPLER AV Peak Velocity 114.0 cm/s LVOT Peak Velocity 106.0 cm/s AV Area Cont Eq vti 3.5 cm squared AV Area Cont Eq pk 3.0 cm squared MV Peak Velocity 97.0 cm/s MV Area PHT 3.5 cm squared Mitral E to A Ratio 1.1 TR Peak Velocity 177.0 cm/s TR Peak Gradient 12.5 mmHg TV Peak E Velocity 67.0 cm/s Right Atrial Pressure 3.0 mmHg Pulmonary Artery Systolic Pressu 15.5 mmHg PV Peak Velocity 117.0 cm/s FINDINGS Left Ventricle Normal left ventricular size and systolic function, EF 69%.mild left ventricular hypertrophy. No regional wall motion abnormalities. Grade II/IV diastolic dysfunction, moderately elevated filling pressures. Right Ventricle The right ventricle is normal in size and function. Right Atrium The right atrium is normal in size. Left Atrium Mildly increased left atrial size. Mitral Valve Trace mitral valve regurgitation. Minimally thickened mitral valve Aortic Valve Thickened aortic valve. Tricuspid Valve No gross abnormalities noted . Pulmonic Valve No gross abnormalities noted Pericardium Normal pericardium without effusion. Aorta Normal ascending aorta dimension. IVC The inferior vena cava appears normal. CONCLUSIONS Normal left ventricular size and systolic function, EF 69%.mild left ventricular hypertrophy. No regional wall motion abnormalities. Grade II/IV diastolic dysfunction, moderately elevated filling pressures. Minimally thickened mitral valve. Trace mitral valve regurgitation. Thickened aortic valve. There is no pericardial effusion. There are no intracardiac masses. No similar previous studies are available for comparison Dr Sheela Reddy MD FAC (Electronically Signed) Final Date: 05 August 2023 22:40 S
--- NOTE | 2023-08-05 15:38 | PC.NURSE ---
ECHO at bedside
[2023-08-05] MEDS: enoxaparin 40 mg/0.4 mL Syringe SUBCUT (18:01)
[2023-08-05] MEDS: metoprolol tartrate 50 mg Tablet 100 MG PO (18:02)
[2023-08-06 00:27] VITALS: BP 153/59; PULSE 57; RESP 18; TEMP 36.7; O2SAT 92
[2023-08-06 03:52] LABS: Basophils # 0.1 10^3/uL (0.0-0.1); Basophils % 0.7 %; Eosinophils # 0.2 10^3/uL (0.0-0.8); Eosinophils % 2.7 %; Hematocrit 42.4 % (37-53); Lymphocytes # 3.7 10^3/uL (0.8-4.8); Lymphocytes % 42.2 %; Mean Corpuscular Hemoglobin 28.5 pg (27-33); Mean Corpuscular Volume 86.2 fl (82-101); Mean Platelet Volume 11.1 fL (7.4-10.4); Monocytes # 0.8 10^3/uL (0.2-0.9); Monocytes % 8.7 %; Neutrophils # 3.97 10^3/uL (1.8-7.7); Neutrophils % 44.9 %; Nucleated Red Blood Cells % 0 %; Platelet Count 185 10^3/cmm (157-399); Red Blood Count 4.92 10^6/uL (3.85-5.65); Red Cell Distribution Width 13.4 % (12.1-15.1); White Blood Count 8.84 10^3/uL (3.29-11.43)
[2023-08-06 04:31] LABS: Alanine Aminotransferase 17 U/L (0-41); Alkaline Phosphatase 46 U/L (40-130); Anion Gap 14.5 (5-19); Aspartate Amino Transferase 15 U/L (0-40); Blood Urea Nitrogen 20 mg/dL (8-23); Calcium 9.1 mg/dL (8.5-10.5); Carbon Dioxide 29 mmol/L (22-29); Chloride 99 mmol/L (98-107); Creatinine Clr Calc Pharmacy 124.7684; Globulin 2.5 g/dL (1.3-4.6); Glomerular Filtration Rate 86.1 mL/min (90-130); Glucose 105 mg/dL (65-115); Magnesium 1.9 mg/dL (1.7-2.3); Osmolality Calculated 291 mOsm/kg (285-295); Potassium 3.5 mmol/L (3.5-5.1); Sodium 139 mmol/L (136-145); Total Bilirubin 0.5 mg/dL (0.15-1.2); Total Protein 6.5 g/dL (6.6-8.7)
[2023-08-06 04:32] LABS: Chol HDL Ratio 7.59 mg/dL (1.0-5.00); Cholesterol 220 mg/dL (0-200); HDL Cholesterol 29 mg/dL (60-100); LDL Cholesterol Calculated 118 mg/dL (50-129); LDL HDL Ratio 4.07 RATIO (0.00-3.22); Triglycerides 363 mg/dL (0-150)
[2023-08-06 05:16] VITALS: PULSE 54
[2023-08-06 05:25] VITALS: BP 164/77; PULSE 55; RESP 15; TEMP 36.5; O2SAT 92
[2023-08-06 05:31] VITALS: BMI 43.2
[2023-08-06] MEDS: lisinopril 20 mg Tablet PO (05:52)
[2023-08-06] MEDS: levothyroxine 88 mcg Tablet PO (05:52)
--- NOTE | 2023-08-06 06:35 | PC.NURSE ---
Patient wanting to leave AMA, refusing stress testing, wanting to follow up with primary care doctor. Patient stated that we were not addressing the cause of his Afib, that he believes it was caused by his undiagnosed sleep apnea . Spoke to Dr. Palumbo who then went to speak to patient about the need for stress testing, agreeable to wait until admitting physician and cardiology arrived on next shift. Patient and voiced concerns about possible side effects of the medication used during stress testing and that they felt they needed more time to make decisions. Patient and verbalized understanding of need for stress testing and that leaving AMA would delay the process.
--- NOTE | 2023-08-06 07:12 | SUR.PREOP ---
STRESS CANCELLED Notified by nuclear medicine that the patient is refusing stress test this morning. CSU nurses made aware. Test cancelled at his request.
--- NOTE | 2023-08-06 07:30 | PM.DCS ---
Discharge Providers Date of Admission: 08/05/23 15:07 Date of Discharge: August 06, 2023 Attending Provider at Admission: Roland Rodríguez MD Attending Provider at Discharge: Roland Rodríguez MD Reason for Visit Reason for Visit: abnormal labs Hospital Course [facility] is a 58-year-old white male who presented to the emergency department twice on the . The initial time was with concern of waking up with A-fib with RVR. He has had intermittent episodes of this since his 20s, and he reports that the previous episode was in April. On arrival to the emergency department heart rate was in the mid 130s. He was given some Cardizem IV and then his home medicines of metoprolol, and verapamil. He reported palpitations, and also reported some posterior neck discomfort he attributed to anxiety. He was initially discharged from the emergency department with when a 2-hour troponin was found to have a significant delta he was called back, and subsequently admitted. EKGs during that visit demonstrated sinus bradycardia, with no concerning ST or T wave changes. Previous EKG when he was in atrial fibrillation demonstrated some ST depression. During the patient's hospital stay he had no recurrent chest discomfort. Troponin was 14 at baseline, approximately 31 at 2 hours and 35 at 6 hours. He was initiated on aspirin. An echocardiogram was obtained which demonstrated preserved EF, no wall motion abnormalities, diastolic dysfunction. Chest x-ray demonstrated questionable pulmonary nodule on the left, with request for nonemergent PA and lateral in 2 weeks. TSH had slight elevation. He was counseled to also have a nuclear stress test, and this was going to be performed July 2016 that he refused. He reported he wanted to go home, think about this, to discuss with his primary care provider. He is also concerned about his sleep apnea which is concurrently being evaluated by his primary, and wanting to get that taken care of first. I discussed with him the risks and benefits of refusing the test including and/or disability, myocardial infarction, etc. He does not want to proceed with further hospitalization or testing at this time, and as he is acknowledging the risks and benefits of what was proposed I see no reason to make him go AGAINST MEDICAL ADVICE. I will therefore discharge him with specific instructions to follow-up expeditiously with his primary care provider. He reports he has an appointment on the , I would encourage that within the next 4 to 7 days. No heavy exertion. Take aspirin every day. Resume his home medicine. Initiate statin, risks and benefits discussed. I discussed with him the abnormal chest x-ray with need to have chest x-ray PA and lateral in the future, and recommended stress test set up as an outpatient. He reported his primary care provider, after conversation with her, would be the one he would prefer set this up. He and his were given opportunity ask questions, and agreed with the plan. No significant arrhythmias were noted overnight on telemetry. He did have a overnight oximetry demonstrating high likelihood of sleep apnea with 5 episodes per hour of brief hypoxia's. Physical Exam Narrative: General exam no distress Neck supple Cardiovascular regular rate and rhythm Lungs clear Abdomen soft, obese Extremities no sinus clubbing edema Discharge Data Studies Completed and Pending Completed Studies During Hospitalization Category Date Time Status US echo complete [CV. echo complete* [id number]] Stat Ultrasound 08/05/23 15:19 Completed See notations above Pending at discharge Category Date Time Status Sestamibi Stress Test Request Stat Exams 08/05/23 15:19 Ordered Laboratory Results WBC 8.84 10^3/uL (3.29-11.43) 08/06/23 03:07 RBC 4.92 10^6/uL (3.85-5.65) 08/06/23 03:07 Hgb 14.00 g/dL (11.27-16.99) 08/06/23 03:07 Hct 42.4 % (37-53) 08/06/23 03:07 MCV 86.2 fl (82-101) 08/06/23 03:07 MCH 28.5 pg (27-33) 08/06/23 03:07 MCHC 33.0 g/dL (30-55) 08/06/23 03:07 RDW 13.4 % (12.1-15.1) 08/06/23 03:07 Plt Count 185 10^3/cmm (157-399) 08/06/23 03:07 MPV 11.1 fL (7.4-10.4) H 08/06/23 03:07 Neut % (Auto) 44.9 % 08/06/23 03:07 Lymph % (Auto) 42.2 % 08/06/23 03:07 [place] % (Auto) 8.7 % 08/06/23 03:07 Eos % (Auto) 2.7 % 08/06/23 03:07 Baso % (Auto) 0.7 % 08/06/23 03:07 Neut # (Auto) 3.97 10^3/uL (1.8-7.7) 08/06/23 03:07 Lymph # (Auto) 3.7 10^3/uL (0.8-4.8) 08/06/23 03:07 [place] # (Auto) 0.8 10^3/uL (0.2-0.9) 08/06/23 03:07 Eos # (Auto) 0.2 10^3/uL (0.0-0.8) 08/06/23 03:07 Baso # (Auto) 0.1 10^3/uL (0.0-0.1) 08/06/23 03:07 Nucleated RBC % (auto) 0 % 08/06/23 03:07 Nucleated RBCs # 0.0 /100WBC 08/06/23 03:07 Sodium 139 mmol/L (136-145) 08/06/23 03:07 Potassium 3.5 mmol/L (3.5-5.1) 08/06/23 03:07 Chloride 99 mmol/L (98-107) 08/06/23 03:07 Carbon Dioxide 29 mmol/L (22-29) 08/06/23 03:07 Anion Gap 14.5 (5-19) 08/06/23 03:07 BUN 20 mg/dL (8-23) 08/06/23 03:07 Creatinine 0.9 mg/dL (0.7-1.2) 08/06/23 03:07 GFR Calculation 86.1 mL/min (90-130) L 08/06/23 03:07 Glucose 105 mg/dL (65-115) 08/06/23 03:07 Calculated Osmolality 291 mOsm/kg (285-295) 08/06/23 03:07 Calcium 9.1 mg/dL (8.5-10.5) 08/06/23 03:07 Magnesium 1.9 mg/dL (1.7-2.3) 08/06/23 03:07 Total Bilirubin 0.5 mg/dL (0.15-1.2) 08/06/23 03:07 AST 15 U/L (0-40) 08/06/23 03:07 ALT 17 U/L (0-41) 08/06/23 03:07 Alkaline Phosphatase 46 U/L (40-130) 08/06/23 03:07 Total Protein 6.5 g/dL (6.6-8.7) L 08/06/23 03:07 Albumin 4.0 g/dL (3.5-5.2) 08/06/23 03:07 Globulin 2.5 g/dL (1.3-4.6) 08/06/23 03:07 Triglycerides 363 mg/dL (0-150) H 08/06/23 03:07 Cholesterol 220 mg/dL (0-200) H 08/06/23 03:07 LDL Cholesterol, Calc 118 mg/dL (50-129) 08/06/23 03:07 HDL Cholesterol 29 mg/dL (60-100) L 08/06/23 03:07 LDL/HDL Ratio 4.07 RATIO (0.00-3.22) H 08/06/23 03:07 Cholesterol/HDL Ratio 7.59 mg/dL (1.0-5.00) H 08/06/23 03:07 Vitals Last Vital Signs Temp 97.7 F 08/06/23 05:25 Pulse 55 L 08/06/23 05:25 Resp 15 08/06/23 05:25 BP 164/77 08/06/23 05:25 Pulse Ox 92 08/06/23 05:25 O2 Del Method Room Air 08/06/23 05:25 Discharge Plan Discharge Patient Disposition: Home Condition: Stable Prescriptions: New Lipitor 40 mg tablet 40 mg PO QPM Qty: 30 0RF Continued multivitamin [Multiple Vitamins] Tablet 1 tab PO DAILY metoprolol tartrate 100 mg tablet 100 mg PO BID aspirin 81 mg Tablet,Delayed Release (Dr/Ec) 81 mg PO QPM lisinopril-hydrochlorothiazide 20-25 mg tablet 1 tab PO QAM clonidine HCl 0.1 mg Tablet 0.1 mg PO PRN PRN (Reason: HIGH BLOOD PRESSURE) verapamil 40 mg tablet 40 mg PO Q12H levothyroxine 88 mcg tablet 88 mcg PO QAM omeprazole 20 mg capsule,delayed release(DR/EC) 20 mg PO DAILY Discontinued ibuprofen 200 mg Tablet 200 mg PO Q6H PRN (Reason: Pain) Coricidin HBP Cold and Flu 2-325 mg Tablet 1 tab PO Q6H PRN (Reason: Congestion) Discharge Orders: Discharge Order (Routine); Ordered 08/06/23 Ordered By: Roland Rodríguez Referrals: Rachana Chicas [Referring] - 1 week (Keep your appointment you have scheduled, sooner if possible.) Discharge Diet: Cardiac and Diabetic Discharge Activity: Limit activity as instructed Patient Instructions: Atorvastatin (By mouth) (Lipitor, Atorvaliq), A-fib (Atrial Fibrillation) (DC), Sleep Apnea (GEN), Hypertension (DC), Opioid Safety Activity Restrictions/Additional Instructions: Please discuss with your physician and nuclear stress test for your elevated troponin. Discussed with your physician getting a chest x-ray PA and lateral for abnormal x-ray here in approximately 2 weeks Discontinue Coricidin and ibuprofen if you are taking these. Consider taking Lipitor 40 mg daily for your elevated cholesterol Return for any chest discomfort or chest discomfort equivalent Discharge Attestations Time Spent in Discharge Care*: greater than 30 min Quality Metrics Clinical Quality Measures [ No reported AMI, CVA or VTE this stay] Coding Level of Care Code 90556 Total time (in minutes) for Discharge: 49
[2023-08-06 07:45] VITALS: BP 221/97; RESP 16
--- NOTE | 2023-08-06 10:18 | PC.NURSE ---
Patient spoke with Dr Rodríguez this morning about his medical care. Patient still expressed that he wanted to leave and was refusing the stress test this morning. Provider put in discharge orders and patient was discharged. Discharge paperwork was discussed with patient and . Patient stated understanding. He left via private car with .
== END 2023-08-06 08:01 | disposition home or self-care (01) ==
LOC: ER 13:01 → ER IP 15:15 → CSU 16:23
PROVIDERS: Admitting Provider Internal Medicine; Emergency Provider Family Medicine; Visit Provider Internal Medicine
DX: I48.91 Unspecified atrial fibrillation (principal); E03.9 Hypothyroidism, unspecified; K21.9 Gastro-esophageal reflux disease without esophagitis; I10 Essential (primary) hypertension; G47.30 Sleep apnea, unspecified
CPT/HCPCS: 36415; 80053; 80061; 83735; 85025; 93306; 94762; 96372; 99285; G0378; J1650

== ENCOUNTER 2023-09-05 21:20 | Emergency (ER) | payer MEDICAID, SELFPAY ==
[2023-09-05 21:36] VITALS: BP 241/99; PULSE 64; RESP 16; TEMP 36.7; O2SAT 96
[2023-09-05 22:11] VITALS: BP 258/89; PULSE 83; RESP 15; O2SAT 94
[2023-09-05 22:13] LABS: Basophils # 0.1 10^3/uL (0.0-0.1); Basophils % 0.8 %; Eosinophils # 0.2 10^3/uL (0.0-0.8); Eosinophils % 2.2 %; Hematocrit 43.6 % (37-53); Lymphocytes % 39.8 %; Mean Corpuscular HGB Conc 33.7 g/dL (30-55); Mean Corpuscular Hemoglobin 28.8 pg (27-33); Mean Corpuscular Volume 85.5 fl (82-101); Mean Platelet Volume 11.2 fL (7.4-10.4); Monocytes # 0.6 10^3/uL (0.2-0.9); Monocytes % 7.9 %; Neutrophils # 3.64 10^3/uL (1.8-7.7); Nucleated Red Blood Cells % 0 %; Platelet Count 197 10^3/cmm (157-399); Red Cell Distribution Width 13.2 % (12.1-15.1); White Blood Count 7.43 10^3/uL (3.29-11.43)
[2023-09-05 22:34] LABS: Alanine Aminotransferase 23 U/L (0-41); Albumin Level 4.3 g/dL (3.5-5.2); Alkaline Phosphatase 63 U/L (40-130); Anion Gap 12.8 (5-19); Aspartate Amino Transferase 17 U/L (0-40); Blood Urea Nitrogen 18 mg/dL (8-23); Calcium 9.7 mg/dL (8.5-10.5); Carbon Dioxide 32 mmol/L (22-29); Chloride 98 mmol/L (98-107); Creatinine Clr Calc Pharmacy 124.3205; Globulin 3.4 g/dL (1.3-4.6); Glomerular Filtration Rate 86.1 mL/min (90-130); Glucose 174 mg/dL (65-115); Osmolality Calculated 294 mOsm/kg (285-295); Potassium 3.8 mmol/L (3.5-5.1); Sodium 139 mmol/L (136-145); Total Bilirubin 0.3 mg/dL (0.15-1.2); Total Protein 7.7 g/dL (6.6-8.7)
--- NOTE | 2023-09-05 22:40 | ED_ITS ---
HPI - General Adult 2 General: Chief complaint: General Medical Stated complaint: high blood pressure Time Seen by Provider: 09/05/23 22:00 History of Present Illness: Patient presents to the ER with complaints of a very high blood pressure even though he takes all of his medicine consistently. Patient took all of his medicine approximately an hour ago that included clonidine 0.1 mg, lisinopril/hydrochlorothiazide, metoprolol 100 mg, verapamil 40 mg he states he really has no complaints other than a headache that actually went away by the time he got to the ER and Ht just did not know what to do with his blood pressure being superhigh and it not responding to his blood pressure medicine. Review of Systems 2 General: Reports: 10 or more systems reviewed and unremarkable except in HPI and below PFSH ED 2 PFSH: Medical History Hypothyroidism Asthma GERD (gastroesophageal reflux disease) Hypertension Atrial fibrillation Sleep apnea Family History Other Atrial fibrillation Social History Smoking and tobacco/nicotine status: current every day tobacco/nicotine user smokeless tobacco Smokeless tobacco user: snuff Alcohol intake: never Substance/Drug Use: never Physical Exam 2 Const: COMMON NORMALS: no acute distress, average body habitus, patient oriented x3, no limitations, healthy appearing, alert and well nourished HENMT: COMMON NORMALS: normocephalic, atraumatic, hearing grossly normal bilaterally, external ears normal, Normal external nose present, moist oral mucous membranes and oropharynx normal HEAD & SCALP: normocephalic and atraumatic NOSE: Normal external nose present EXTERNAL EAR: Yes external ears normal Neck/C-Spine: COMMON NORMALS: full ROM, no lymphadenopathy, supple, no meningeal signs, no JVD and Thyroid normal THYROID: Thyroid normal Chest: COMMONS NORMALS: normal inspection of the chest and normal palpation of entire chest wall Resp: COMMON NORMALS: normal respiratory effort, No retractions, No use of accessory muscles and clear to auscultation bilaterally AUSCULTATION: clear to auscultation bilaterally Cardio: COMMON NORMALS: no JVD, regular rate, regular rhythm, S1 normal heart sound present, S2 normal heart sound present, No gallops present (Cardio), No clicks present (Cardio), No murmurs present (Cardio) and No rub (Cardio) R ATE: regular rate RHYTHM: regular rhythm HEART SOUNDS: S1 normal heart sound present and S2 normal heart sound present Neuro: COMMON NORMALS: patient oriented x3 SENSORIUM/ORIENTATION: Yes alert MENINGEAL SIGNS: Yes no meningeal signs Course 2 Vital Signs: Vital signs: Vital Signs Temperature 98.0 F 09/05/23 21:36 Pulse Rate 83 09/05/23 22:11 Respiratory Rate 15 09/05/23 22:11 Blood Pressure 258/89 09/05/23 22:11 Pulse Oximetry 94 09/05/23 22:11 Oxygen Delivery Me thod Room Air 09/05/23 22:11 MDM - General Adult Medical Decision Making Patient CBC and CMP performed that was unremarkable, patient was given 20 mg of hydralazine IV and it lowered his blood pressure from 258/89 to 166/75. This was discussed with the patient's and patient's will be increased clonidine usage as needed. Patient be discharged home. Differential Diagnosis Hypertension Medical Records I reviewed the patient's medical records. Lab Data I reviewed the patient's lab results. 09/05/23 22:04 09/05/23 22:04 Laboratory Results WBC 7.43 10^3/uL (3.29-11.43) 09/05/23 22:04 RBC 5.10 10^6/uL (3.85-5.65) 09/05/23 22:04 Hgb 14.70 g/dL (11.27-16.99) 09/05/23 22:04 Hct 43.6 % (37-53) 09/05/23 22:04 MCV 85.5 fl (82-101) 09/05/23 22:04 MCH 28.8 pg (27-33) 09/05/23 22:04 MCHC 33.7 g/dL (30-55) 09/05/23 22:04 RDW 13.2 % (12.1-15.1) 09/05/23 22:04 Plt Count 197 10^3/cmm (157-399) 09/05/23 22:04 MPV 11.2 fL (7.4-10.4) H 09/05/23 22:04 Neut % (Auto) 49.0 % 09/05/23 22:04 Lymph % (Auto) 39.8 % 09/05/23 22:04 [place] % (Auto) 7.9 % 09/05/23 22:04 Eos % (Auto) 2.2 % 09/05/23 22:04 Baso % (Auto) 0.8 % 09/05/23 22:04 Neut # (Auto) 3.64 10^3/uL (1.8-7.7) 09/05/23 22:04 Lymph # (Auto) 3.0 10^3/uL (0.8-4.8) 09/05/23 22:04 [place] # (Auto) 0.6 10^3/uL (0.2-0.9) 09/05/23 22:04 Eos # (Auto) 0.2 10^3/uL (0.0-0.8) 09/05/23 22:04 Baso # (Auto) 0.1 10^3/uL (0.0-0.1) 09/05/23 22:04 Nucleated RBC % (auto) 0 % 09/05/23 22:04 Nucleated RBCs # 0.0 /100WBC 09/05/23 22:04 Sodium 139 mmol/L (136-145) 09/05/23 22:04 Potassium 3.8 mmol/L (3.5-5.1) 09/05/23 22:04 Chloride 98 mmol/L (98-107) 09/05/23 22:04 Carbon Dioxide 32 mmol/L (22-29) H 09/05/23 22:04 Anion Gap 12.8 (5-19) 09/05/23 22:04 BUN 18 mg/dL (8-23) 09/05/23 22:04 Creatinine 0.9 mg/dL (0.7-1.2) 09/05/23 22:04 GFR Calculation 86.1 mL/min (90-130) L 09/05/23 22:04 Glucose 174 mg/dL (65-115) H 09/05/23 22:04 Calculated Osmolality 294 mOsm/kg (285-295) 09/05/23 22:04 Calcium 9.7 mg/dL (8.5-10.5) 09/05/23 22:04 Total Bilirubin 0.3 mg/dL (0.15-1.2) 09/05/23 22:04 AST 17 U/L (0-40) 09/05/23 22:04 ALT 23 U/L (0-41) 09/05/23 22:04 Alkaline Phosphatase 63 U/L (40-130) 09/05/23 22:04 Total Protein 7.7 g/dL (6.6-8.7) 09/05/23 22:04 Albumin 4.3 g/dL (3.5-5.2) 09/05/23 22:04 Globulin 3.4 g/dL (1.3-4.6) 09/05/23 22:04 No radiology studies performed this visit Discharge Plan Discharge Patient Disposition: Home Clinical Impression: Hypertension Qualifiers: Hypertension type: unspecified Qualified Code(s): I10 - Essential (primary) hypertension Condition: Stable Prescriptions: No Action multivitamin [Multiple Vitamins] Tablet 1 tab PO DAILY metoprolol tartrate 100 mg tablet 100 mg PO BID aspirin 81 mg Tablet,Delayed Release (Dr/Ec) 81 mg PO QPM lisinopril-hydrochlorothiazide 20-25 mg tablet 1 tab PO QAM clonidine HCl 0.1 mg Tablet 0.1 mg PO PRN PRN (Reason: HIGH BLOOD PRESSURE) verapamil 40 mg tablet 40 mg PO Q12H levothyroxine 88 mcg tablet 88 mcg PO QAM omeprazole 20 mg capsule,delayed release(DR/EC) 20 mg PO DAILY Lipitor 40 mg tablet 40 mg PO QPM Qty: 30 0RF Discharge Orders: Discharge ED (Routine); Ordered 09/05/23 Ordered By: Seng Lopez Patient Instructions: Hypertension (ED) Activity Restrictions/Additional Instructions: Your lab work was unremarkable, you are given 20 mg of hydralazine and your IV which lowered your blood pressure. You may take more clonidine then your labile says. I would start off with checking her blood pressure if it was greater than 160 I would take between 1-3 clonidine at that time and recheck in 1 hour. If it still greater than 160 I would take another 1-3 clonidine and recheck in 1 hour. If this is not improving her blood pressure please feel free to return to the ER. Otherwise please keep track of how many times you take your clonidine and how many pills you take and follow-up with your family practice doctor because your blood pressure medicine may need to be adjusted. Coding Level of Care Code ED Staff Development Coordinator Rn for 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
[2023-09-05] MEDS: hyDRALAzine 20 mg/mL INJ 1 mL IVP (22:52)
[2023-09-05 23:52] VITALS: BP 158/69; PULSE 59; RESP 20; O2SAT 93
== END 2023-09-05 23:34 | disposition home or self-care (01) ==
PROVIDERS: Emergency Provider Emergency Medicine
DX: I10 Essential (primary) hypertension (principal); Z79.82 Long term (current) use of aspirin; F17.220 Nicotine dependence, chewing tobacco, uncomplicated
CPT/HCPCS: 80053; 85025; 96374; 99284; J0360